=== PATIENT | female | born 1965 | race Caucasian/White ===

== ENCOUNTER 2018-05-17 07:07 | Emergency (ER) | payer BC ==
[2018-05-17 07:19] VITALS: BP 147/104
[2018-05-17] MEDS ORDERED: Ketorolac INJ* 60 MG/2 ML VIAL IM ONE (07:43)
--- NOTE | 2018-05-17 07:43 | UC ---
Back Pain HPI - HPI Summary HPI Summary: 52-year-old woman with a chief complaint of tailbone area pain. 2 days ago patient was shoveling snow and started to have some pain in her tailbone area and slightly to the right of it. There was no known trauma she did not fall. She feels like there is some spasm in the area that intermittently gets worse. It does radiate towards her perineum on occasion. No difficulty controlling urine or bowels. No numbness or weakness. Urination been normal bowel movements Normal. There is no swelling or rash patient is not worried about a pilonidal cyst or infection. - History of Current Complaint Chief Complaint: UCBackPain Stated Complaint: TAIL BONE PAIN Time Seen by Provider: 05/17/18 07:24 Hx Last Menstrual Period: february Pain Intensity: 8 - Allergies/Home Medications Allergies/Adverse Reactions: Allergies Allergy/AdvReac Type Severity Reaction Status Date / Time amoxicillin Allergy Rash Verified 05/17/18 07:20 Home Medications: Home Medications Hydrochlorothiazide TAB* [Hydrodiuril TAB*] 12.5 mg PO DAILY 05/17/18 [History Confirmed 05/17/18] Ibuprofen TAB* [Advil TAB*] 200 mg PO Q6H PRN 05/17/18 [History Confirmed ] Lisinopril TAB* [Prinivil TAB*] 5 mg PO DAILY 05/17/18 [History Confirmed ] PMH/Surg Hx/FS Hx/Imm Hx Previously Healthy: Yes Cardiovascular History: Hypertension - Surgical History Surgical History: None - Family History Known Family History: Positive: Non-Contributory - Social History Alcohol Use: Occasionally Substance Use Type: None Smoking Status (MU): Never Smoked Tobacco Review of Systems All Other Systems Reviewed And Are Negative: Yes Constitutional: Positive: Negative Skin: Positive: Negative Eyes: Positive: Negative ENT: Positive: Negative Respiratory: Positive: Negative Cardiovascular: Positive: Negative Gastrointestinal: Positive: Negative Genitourinary: Positive: Negative Motor: Positive: Negative Neurovascular: Positive: Negative Musculoskeletal: Positive: Other: - see hpi Neurological: Positive: Negative Psychological: Positive: Negative Is Patient Immunocompromised?: No Physical Exam Triage Information Reviewed: Yes Appearance: Well-Appearing, No Pain Distress, Well-Nourished Vital Signs: Initial Vital Signs Temp 99.1 F 05/17/18 07:14 Pulse 84 05/17/18 07:14 Resp 16 05/17/18 07:14 BP 147/104 05/17/18 07:14 Pulse Ox 100 05/17/18 07:14 Vital Signs Reviewed: Yes Eye Exam: Normal Eyes: Positive: Conjunctiva Clear Neck exam: Normal Neck: Positive: Supple Respiratory: Positive: Lungs clear, Normal breath sounds, No respiratory distress Cardiovascular: Positive: RRR Musculoskeletal: Positive: Other: - Patient is tender to palpation patient is tender to palpation in the sacrum and just to the right of the sacrum and into the right buttock. Neurological Exam: Normal Neurological: Positive: Alert, Muscle Tone Normal Psychological Exam: Normal Psychological: Positive: Age Appropriate Behavior Skin Exam: Normal Back Pain Course/Dx - Course Course Of Treatment: Patient describes musculoskeletal injury to the sacral and coccyx area. There is no neurologic deficit. Normal bowels and bladder. I did not directly visualize the area we discussed this the patient denies any concern of infection or pilonidal cyst. Plan is to treat with anti- inflammatories and a donut pillow and follow-up with primary care physician. I let her know if she had any neurologic deficit she needed to get reevaluated right away. - Differential Dx/Diagnosis Provider Diagnosis: Sacral back pain Discharge - Sign-Out/Discharge Documenting (check all that apply): Patient Departure All imaging exams completed and their final reports reviewed: No Studies - Discharge Plan Condition: Stable Disposition: HOME Prescriptions: Cyclobenzaprine TAB* [Flexeril 10 MG TAB*] 10 mg PO TID PRN #15 tab MDD 3 PRN Reason: Pain Patient Education Materials: Coccyx Injury (ED), Acute Low Back Pain (ED), Lower Back Exercises (ED) Referrals: Italo STANFORD,Koby Gentile [Primary Care Provider] - Additional Instructions: FOLLOW UP WITH YOUR DOCTOR IF NOT COMPLETELY IMPROVED. TAKE 600MG EVERY 6 HOURS NEEDED. APPLY COLD TO THE AREA IF HELPFUL. GET RECHECKED FOR ANY WORSENING OF YOUR CONDITION OR QUESTIONS OR CONCERNS. - Billing Disposition and Condition Condition: STABLE Disposition: Home
== END 2018-05-17 07:55 | disposition home or self-care (01) ==
LOC: UCEAST 07:07
DX: M53.3 Sacrococcygeal disorders, not elsewhere classified (principal); I10 Essential (primary) hypertension; Z88.0 Allergy status to penicillin; Z79.899 Other long term (current) drug therapy
CPT/HCPCS: 96372; 99212; G0463; J1885

== ENCOUNTER 2018-05-25 16:07 | Emergency (ER) | payer BC ==
--- NOTE | 2018-05-25 18:19 | ED ---
GI/ HPI - HPI Summary HPI Summary: Pt is 52 y/o F who presents to ED c/o issues with bowel movement for 1.5 weeks. She began noticing rectal pain after shoveling snow on 05/17/18 and has been constipated. Her last bowel movement was 3 days ago and she noted rectal pain and difficulty during the movement, but relief of symptoms following the movement before they returned again shortly after. Pt describes the pain as always present but interspersed with more severe intermittent shooting pains. Rates pain as 4/10 in severity. Denies abdominal pain or nausea. States that she has used suppositories and laxatives but they havent provided much relief. - History of Current Complaint Chief Complaint: EDAbdPain Time Seen by Provider: 05/25/18 17:23 Stated Complaint: RECTAL PAIN Hx Obtained From: Patient Hx Last Menstrual Period: february Onset/Duration: Started Days Ago, Still Present Timing: Constant - constant pain underlying the shooting pains, Intermittent - more intense shooting pains Severity: Moderate Pain Intensity: 4 Location of Pain: Rectal Pain Characteristics: Pressure, Other: - shooting Associated Signs and Symptoms: Positive: Rectal Pain, Constipation. Negative: Abdominal Pain Alleviating Factor(s): Bowel Movements - Allergy/Home Medications Allergies/Adverse Reactions: Allergies Allergy/AdvReac Type Severity Reaction Status Date / Time amoxicillin Allergy Rash Verified 05/25/18 16:15 Home Medications: Home Medications Lisinopril/HCTZ 10/12.5(NF) [Zestoretic 12.5(NF)] 0.5 tab PO DAILY 05/25/18 [ History Confirmed 05/25/18] PMH/Surg Hx/FS Hx/Imm Hx Cardiovascular History: Reports: Hx Hypertension Neurological History: Denies: Hx Headaches - HX MIGRAINES - Cancer History Hx Chemotherapy: No Hx Radiation Therapy: No Infectious Disease History: No Infectious Disease History: Denies: Traveled Outside the [place] in Last 30 Days - Family History Known Family History: Positive: Non-Contributory - Social History Alcohol Use: Occasionally Substance Use Type: Reports: None Smoking Status (MU): Never Smoked Tobacco Review of Systems Negative: Fever Positive: Other - constipation. Negative: Abdominal Pain - constipation, rectal pain, Nausea All Other Systems Reviewed And Are Negative: Yes Physical Exam - Summary Physical Exam Summary: Appearance: The patient is well-nourished in no acute distress and in no acute pain. Skin: The skin is warm and dry and skin color reflects adequate perfusion. HEENT: The head is normocephalic and atraumatic. The pupils are equal and reactive. The conjunctivae are clear and without drainage. Nares are patent and without drainage. Mouth reveals moist mucous membranes and the throat is without erythema and exudate. The external ears are intact. The ear canals are patent and without drainage. The tympanic membranes are intact. Neck: The neck is supple with full range of motion and non-tender. There are no carotid bruits. There is no neck vein distension. Respiratory: Chest is non-tender. Lungs are clear to auscultation and breath sounds are symmetrical and equal. Cardiovascular: Heart is regular rate and rhythm. There is no murmur or rub auscultated. There is no peripheral edema and pulses are symmetrical and equal. Abdomen: Mild suprapubic tenderness. There are normal bowel sounds heard in all four quadrants and there is no organomegaly palpated. Musculoskeletal: There is no back tenderness noted. Extremities are non-tender with full range of motion. There is good capillary refill. There is no peripheral edema or calf tenderness elicited. Neurological: Patient is alert and oriented to person, place and time. The patient has symmetrical motor strength in all four extremities. Cranial nerves are grossly intact. Deep tendon reflexes are symmetrical and equal in all four extremities. Psychiatric: The patient has an appropriate affect and does not exhibit any anxiety or depression. Triage Information Reviewed: Yes Vital Signs On Initial Exam: Initial Vitals Temp Pulse Resp BP Pulse Ox 99.0 F 59 16 155/98 100 05/25/18 16:10 05/25/18 16:10 05/25/18 16:10 05/25/18 16:10 05/25/18 16:10 Vital Signs Reviewed: Yes Diagnostics - Vital Signs Vital Signs Temp Pulse Resp BP Pulse Ox 05/25/18 17:25 66 99 05/25/18 16:10 99.0 F 59 16 155/98 100 - Laboratory Result Diagrams: 05/25/18 18:56 05/25/18 18:56 Lab Statement: Any lab studies that have been ordered have been reviewed, and results considered in the medical decision making process. - Radiology Abdomen X-ray Radiology Interpretation Completed By: Radiologist Summary of Radiographic Findings: Moderately large volume of stool present in the colon without evidence for bowel obstruction. ED Physician reviewed this report. - CT Abd CT Interpretation Completed By: Radiologist Summary of CT Findings: Coccygeal dislocation possibly correlating with patient' s symptomology. No additional findings to correlate with patient's symptomatology. ED Physician reviewed this report. Abd/Pel CT Interpretation Completed By: Radiologist Summary of CT Findings: Coccygeal dislocation possibly correlating with patient' s symptomology. No additional findings to correlate with patient's symptomatology. ED Physician reviewed this report. GIGU Course/Dx - Course Course Of Treatment: Ms. Coyle presented with pain with defecation. She normally passes her bowels once or twice a week and has been doing so but it is very painful. She has discomfort when sitting or moving but especially when moving her bowels. Abdomen was soft nontender with normoactive bowel sounds. Rectal exam was unremarkable. Labs were obtained and were unremarkable. A plain KUB was obtained and did show a lot of stool in the descending colon but very little in the rectum, certainly no impaction. CT was obtained which showed a dislocated coccyx. I will treat her symptomatically with tramadol and Colace for stool softening and recommend follow-up with orthopedics. - Diagnoses Provider Diagnoses: Dislocation of coccyx Discharge - Sign-Out/Discharge Documenting (check all that apply): Patient Departure - Discharge Patient Received Moderate/Deep Sedation with Procedure: No - Discharge Plan Condition: Stable Disposition: HOME Prescriptions: Docusate CAP* [Colace Cap*] 100 mg PO BID #20 cap traMADol TAB* [Ultram*] 50 mg PO Q6HR PRN #20 tab MDD 4 PRN Reason: Pain Patient Education Materials: Coccyx Injury (ED) Referrals: Loretta García MD [Medical Doctor] - 2 Days Additional Instructions: Follow up with Dr. García. Return to ED for any new or worsening symptoms. - Billing Disposition and Condition Condition: STABLE Disposition: Home - Attestation Statements Document Initiated by Scribe: Yes Documenting Scribe: Warren Kwok Provider For Whom Scribe is Documenting (Include Credential): Dr. Santi Petersen MD Scribe Attestation: Warren Wang, scribed for Dr. Santi Petersen MD on 05/25/18 at 2120. Scribe Documentation Reviewed: Yes Provider Attestation: The documentation as recorded by the prestonibeWarren accurately reflects the service I personally performed and the decisions made by me, Dr. Santi Petersen MD Status of Rich Document: Viewed
[2018-05-25 19:02] LABS: ABS Basophils 0 10^3/ul (0-0.2); ABS Eosinophils 0.1 10^3/ul (0-0.6); ABS Lymphocytes 1.8 10^3/ul (1.0-4.8); ABS Monocytes 0.3 10^3/ul (0-0.8); ABS Neutrophils 2.7 10^3/ul (1.5-7.7); ABS Nucleated RBC 0 10^3/ul; Eosinophil % 1.5 %; Hematocrit 41 % (35-47); Hemoglobin 13.5 g/dl (12.0-16.0); Lymphocyte % 36.3 %; Mean Corpuscular HGB Conc 33 g/dl (31-36); Mean Corpuscular Hemoglobin 29 pg (27-31); Mean Corpuscular Volume 88 fL (80-97); Mean Platelet Volume 8.2 fL (7.4-10.4); Nucleated Red Blood Cells % 0; Platelet Count 188 10^3/ul (150-450); Red Blood Count 4.69 10^6/ul (4.00-5.40); Red Cell Distribution Width 14 % (10.5-15)
[2018-05-25 19:19] LABS: ALT 8 U/L (7-52); AST 13 U/L (13-39); Albumin 4.5 g/dL (3.2-5.2); Albumin/Globulin Ratio 1.7 (1-3); Alkaline Phosphatase 65 U/L (34-104); Anion Gap 3 mmol/L (2-11); Blood Urea Nitrogen 16 mg/dL (6-24); C Reactive Protein < 1.00 mg/L (<8.01); CO2 Carbon Dioxide 30 mmol/L (22-32); Calcium 9.5 mg/dL (8.6-10.3); Chloride 106 mmol/L (101-111); EGFR African American 81.2 (>60); EGFR Non-African American 67.1 (>60); Globulin 2.6 g/dL (2-4); Glucose 87 mg/dL (70-100); Potassium 4.4 mmol/L (3.5-5.0); Sodium 139 mmol/L (135-145); Total Protein 7.1 g/dL (6.4-8.9)
[2018-05-25] MEDS ORDERED: traMADol TAB* 50 MG PO ONE (20:36)
[2018-05-25 20:45] VITALS: BP 143/99
== END 2018-05-25 20:45 | disposition home or self-care (01) ==
LOC: ED 16:07
DX: S33.2XXA Dislocation of sacroiliac and sacrococcygeal joint, initial encounter (principal); K59.00 Constipation, unspecified; Z88.0 Allergy status to penicillin; X50.9XXA Other and unspecified overexertion or strenuous movements or postures, initial encounter; Y92.9 Unspecified place or not applicable; I10 Essential (primary) hypertension
CPT/HCPCS: 36415; 74018; 74176; 80053; 85025; 86140; 99282; A9270-GY

== ENCOUNTER 2018-06-20 07:04 | Emergency (ER) | payer BC ==
[2018-06-20 07:19] VITALS: BP 146/90
--- NOTE | 2018-06-20 07:33 | ED ---
Skin Complaint - HPI Summary HPI Summary: 52 yo WF p/w left 1st toe paronychia x 1 day, red, swollen, no purulent d/c - History of Current Complaint Chief Complaint: UCLowerExtremity Time Seen by Provider: 06/20/18 07:07 Stated Complaint: FOOT PAIN Hx Obtained From: Patient Hx Last Menstrual Period: february Onset/Duration: Started Days Ago Skin Exposure Onset/Duration: Days Ago Timing: Constant Onset Severity: Moderate Pain Intensity: 6 - Allergy/Home Medications Allergies/Adverse Reactions: Allergies Allergy/AdvReac Type Severity Reaction Status Date / Time amoxicillin Allergy Rash Verified 05/25/18 16:15 Home Medications: Home Medications Lisinopril [Zestril 5 MG-] 10 mg PO DAILY 06/20/18 [History Confirmed 06/20/18] Mirtazapine TAB* [Remeron TAB*] 15 mg PO DAILY 06/20/18 [History Confirmed 06/20] PMH/Surg Hx/FS Hx/Imm Hx Previously Healthy: Yes Cardiovascular History: Reports: Hx Hypertension Neurological History: Denies: Hx Headaches - HX MIGRAINES - Cancer History Hx Chemotherapy: No Hx Radiation Therapy: No Infectious Disease History: No Infectious Disease History: Denies: Traveled Outside the [place] in Last 30 Days - Family History Known Family History: Positive: Non-Contributory - Social History Alcohol Use: Occasionally Substance Use Type: Reports: None Smoking Status (MU): Never Smoked Tobacco Review of Systems - ROS Summary Review of Systems Summary: Constitutional: Negative Eyes: Negative ENT: Negative Cardiovascular: Negative Respiratory: Negative Gastrointestinal: Negative Genitourinary: Negative Musculoskeletal: Negative Neurological: Negative Psychological: Normal Skin:SEE HPI All Other Systems Reviewed And Are Negative: Yes All Other Systems Reviewed And Are Negative: Yes Physical Exam - Summary Physical Exam Summary: Triage Information Reviewed: Yes Appearance: No Pain Distress Eye Exam: Normal ENT Exam: Normal ENT: Positive: Normal ENT inspection Neck: Positive: Supple Respiratory: Positive: Lungs clear, Normal breath sounds Cardiovascular: Positive: RRR, S1, S2 Abdominal Exam: Normal Musculoskeletal Exam: Normal Neurological Exam: Normal Psychological Exam: Normal Skin Exam: left 1st toe paronychia Triage Information Reviewed: Yes Vital Signs On Initial Exam: Initial Vitals Temp Pulse Resp BP Pulse Ox 36.8 C 92 16 146/90 100 06/20/18 07:14 06/20/18 07:14 06/20/18 07:14 06/20/18 07:14 06/20/18 07:14 Diagnostics - Vital Signs Vital Signs Temp Pulse Resp BP Pulse Ox 06/20/18 07:14 36.8 C 92 16 146/90 100 - Laboratory Lab Statement: Any lab studies that have been ordered have been reviewed, and results considered in the medical decision making process. Course/Dx - Diagnoses Provider Diagnoses: Paronychia of great toe of left foot Discharge - Sign-Out/Discharge Documenting (check all that apply): Patient Departure All imaging exams completed and their final reports reviewed: No Studies - Discharge Plan Condition: Stable Disposition: HOME Prescriptions: Sulfamethox/Trimethoprim DS* [Bactrim DS 800/160 TAB*] 1 tab PO BID 10 Days #20 tab Patient Education Materials: Paronychia (ED) Referrals: Italo STANFORD,Koby Gentile [Primary Care Provider] - - Billing Disposition and Condition Condition: STABLE Disposition: Home
== END 2018-06-20 07:35 | disposition home or self-care (01) ==
LOC: UCEAST 07:04
DX: L03.032 Cellulitis of left toe (principal); I10 Essential (primary) hypertension; Z88.0 Allergy status to penicillin; Z79.899 Other long term (current) drug therapy
CPT/HCPCS: 99212; G0463

== ENCOUNTER 2018-10-23 07:06 | Emergency (ER) | payer BC ==
[2018-10-23 07:21] VITALS: BP 136/86
--- NOTE | 2018-10-23 07:36 | UC ---
Complaint Female HPI - HPI Summary HPI Summary: 53-year-old woman comes in with a chief complaint of burning with urination for one week. No fevers or chills. Denies any abdominal pain or flank pain. Feels well otherwise. Has been drinking lots of water which does help with the symptoms. Patient reports this feels like a UTI. - History Of Current Complaint Chief Complaint: UCGU Stated Complaint: URINE ISSUES Time Seen by Provider: 10/23/18 07:16 Hx Last Menstrual Period: february Pain Intensity: 8 - Allergies/Home Medications Allergies/Adverse Reactions: Allergies Allergy/AdvReac Type Severity Reaction Status Date / Time amoxicillin Allergy Rash Verified 10/23/18 07:21 Home Medications: Home Medications Docusate CAP* [Colace Cap*] 100 mg PO BID PRN 10/23/18 [History Confirmed ] PMH/Surg Hx/FS Hx/Imm Hx Previously Healthy: Yes Cardiovascular History: Hypertension - Surgical History Surgical History: None - Family History Known Family History: Positive: Non-Contributory - Social History Alcohol Use: Occasionally Substance Use Type: None Smoking Status (MU): Never Smoked Tobacco Review of Systems All Other Systems Reviewed And Are Negative: Yes Constitutional: Positive: Negative Skin: Positive: Negative Eyes: Positive: Negative ENT: Positive: Negative Respiratory: Positive: Negative Cardiovascular: Positive: Negative Gastrointestinal: Positive: Negative Genitourinary: Positive: Dysuria, Frequency, Urgency Motor: Positive: Negative Neurovascular: Positive: Negative Musculoskeletal: Positive: Negative Neurological: Positive: Negative Psychological: Positive: Negative Is Patient Immunocompromised?: No Physical Exam Triage Information Reviewed: Yes Appearance: Well-Appearing, No Pain Distress, Well-Nourished Vital Signs: Initial Vital Signs Temp 98.7 F 10/23/18 07:15 Pulse 58 10/23/18 07:15 Resp 16 10/23/18 07:15 BP 136/86 10/23/18 07:15 Pulse Ox 100 10/23/18 07:15 Vital Signs Reviewed: Yes Eye Exam: Normal Eyes: Positive: Conjunctiva Clear Neck: Positive: Supple Respiratory: Positive: Lungs clear, Normal breath sounds, No respiratory distress Cardiovascular: Positive: RRR Abdomen Description: Positive: Nontender. Negative: CVA Tenderness (R), CVA Tenderness (L) Musculoskeletal Exam: Normal Musculoskeletal: Positive: Strength Intact, ROM Intact Neurological Exam: Normal Neurological: Positive: Alert, Muscle Tone Normal Psychological Exam: Normal Psychological: Positive: Age Appropriate Behavior Skin Exam: Normal Complaint Female Dx - Differential Dx/Diagnosis Provider Diagnosis: UTI (urinary tract infection) Discharge - Sign-Out/Discharge Documenting (check all that apply): Patient Departure All imaging exams completed and their final reports reviewed: No Studies - Discharge Plan Condition: Stable Disposition: HOME Prescriptions: Fluconazole 150 MG TAB* [Diflucan 150 MG TAB*] 150 mg PO ONCE #2 tablet Nitrofurantoin Monohyd/M-Cryst [Macrobid 100 mg Capsule] 100 mg PO BID #14 cap Patient Education Materials: Urinary Tract Infection in Women (ED) Referrals: Italo STANFORD,Koby Gentile [Primary Care Provider] - Additional Instructions: FOLLOW UP WITH YOUR DOCTOR IF NOT COMPLETELY IMPROVED. GET RECHECKED SOONER IF YOUR CONDITION WORSENS OR ANY QUESTIONS OR CONCERNS. - Billing Disposition and Condition Condition: STABLE Disposition: Home
== END 2018-10-23 07:40 | disposition home or self-care (01) ==
LOC: UCEAST 07:06
DX: N39.0 Urinary tract infection, site not specified (principal); I10 Essential (primary) hypertension
CPT/HCPCS: 81002; 87077; 87086; 87186; 99212; G0463